=== PATIENT | female | born 1990 | race Caucasian/White ===

== ENCOUNTER → 2019-09-18 15:58 | Outpatient (CLI) | payer OTHER | END | disposition home or self-care (01) | LOC: LAB 15:58 | DX: J11.1 Influenza due to unidentified influenza virus with other respiratory manifestations (principal) ==

== ENCOUNTER 2021-05-19 14:10 | Outpatient (CLI) | payer OTHER | END 2021-05-19 14:30 | disposition home or self-care (01) | LOC: PPH VACUNA 14:10 | PROVIDERS: ATTEND Emergency Medicine Pediatric Emergency Medicine | DX: Z23 Encounter for immunization (principal) ==

== ENCOUNTER 2021-10-23 09:42 | Emergency (ER) | payer OTHER ==
[~2021-10-23] VITALS: Ht 149.9 cm; Wt 97.1 kg
[2021-10-23] MEDS ORDERED: MUPIROCIN22 GM TOP (10:12)
== END 2021-10-23 11:25 | disposition home or self-care (01) ==
LOC: ER 09:42
DX: S90.871A Other superficial bite of right foot, initial encounter (principal); W55.01XA Bitten by cat, initial encounter; Y92.9 Unspecified place or not applicable

== ENCOUNTER 2021-12-18 09:21 | Outpatient (CLI) | payer OTHER ==
[~2021-12-18 09:21] MED LIST: MUPIROCIN22 GM TOP
== END 2021-12-18 15:00 | disposition home or self-care (01) ==
LOC: LAB 09:21
DX: U07.1 COVID-19 (principal)

== ENCOUNTER 2022-03-20 07:50 | Outpatient (CLI) | payer OTHER | END 2022-03-20 07:51 | disposition home or self-care (01) | LOC: LAB 07:50 | PROVIDERS: ATTEND Internal Medicine | DX: G43.109 Migraine with aura, not intractable, without status migrainosus (principal); Z13.1 Encounter for screening for diabetes mellitus; Z13.220 Encounter for screening for lipoid disorders; Z13.29 Encounter for screening for other suspected endocrine disorder; E55.9 Vitamin D deficiency, unspecified ==

== ENCOUNTER 2022-03-21 11:40 | Outpatient (CLI) | payer OTHER | END 2022-03-21 11:42 | disposition home or self-care (01) | LOC: LAB 11:40 | PROVIDERS: ATTEND Internal Medicine | DX: G43.109 Migraine with aura, not intractable, without status migrainosus (principal); E55.9 Vitamin D deficiency, unspecified; Z13.1 Encounter for screening for diabetes mellitus; Z13.220 Encounter for screening for lipoid disorders; Z13.29 Encounter for screening for other suspected endocrine disorder ==

== ENCOUNTER 2022-07-18 07:12 | Outpatient (CLI) | payer OTHER | END 2022-07-18 07:17 | disposition home or self-care (01) | LOC: LAB 07:12 | PROVIDERS: ATTEND Internal Medicine | DX: G43.109 Migraine with aura, not intractable, without status migrainosus (principal); E78.9 Disorder of lipoprotein metabolism, unspecified; Z13.1 Encounter for screening for diabetes mellitus; Z13.29 Encounter for screening for other suspected endocrine disorder; E55.9 Vitamin D deficiency, unspecified; L29.8 Other pruritus ==

== ENCOUNTER 2022-07-19 06:53 | Outpatient (CLI) | payer OTHER | END 2022-07-19 06:56 | disposition home or self-care (01) | LOC: LAB 06:53 | PROVIDERS: ATTEND Internal Medicine | DX: G43.109 Migraine with aura, not intractable, without status migrainosus (principal); L29.8 Other pruritus; E78.9 Disorder of lipoprotein metabolism, unspecified; Z13.1 Encounter for screening for diabetes mellitus; Z13.29 Encounter for screening for other suspected endocrine disorder; E55.9 Vitamin D deficiency, unspecified ==

== ENCOUNTER 2022-08-15 07:19 | Outpatient (CLI) | payer OTHER | END 2022-08-15 07:21 | disposition home or self-care (01) | LOC: LAB 07:19 | PROVIDERS: ATTEND Internal Medicine | DX: D64.9 Anemia, unspecified (principal); E55.9 Vitamin D deficiency, unspecified; L29.8 Other pruritus; G43.109 Migraine with aura, not intractable, without status migrainosus ==

== ENCOUNTER → 2022-09-24 | Outpatient (CLI) | payer OTHER | END | disposition home or self-care (01) | LOC: LAB 07:33 | PROVIDERS: ATTEND Internal Medicine | DX: D64.9 Anemia, unspecified (principal); E55.9 Vitamin D deficiency, unspecified; L29.8 Other pruritus; G43.109 Migraine with aura, not intractable, without status migrainosus ==

== ENCOUNTER → 2022-09-26 10:48 | Outpatient (CLI) | payer OTHER | END | disposition home or self-care (01) | LOC: LAB 10:48 | PROVIDERS: ATTEND Internal Medicine | DX: D64.9 Anemia, unspecified (principal); J10.1 Influenza due to other identified influenza virus with other respiratory manifestations; J06.9 Acute upper respiratory infection, unspecified ==

== ENCOUNTER 2023-05-02 07:49 | Outpatient (CLI) | payer OTHER | END 2023-05-02 08:01 | disposition home or self-care (01) | LOC: SONOGRAMA 07:49 | PROVIDERS: ATTEND Internal Medicine | DX: R10.9 Unspecified abdominal pain (principal) ==

== ENCOUNTER 2023-05-24 10:00 | Outpatient (CLI) | payer OTHER | END 2023-05-24 10:10 | disposition home or self-care (01) | LOC: PPH VACUNA 10:00 | PROVIDERS: ATTEND Emergency Medicine Pediatric Emergency Medicine | DX: Z23 Encounter for immunization (principal) ==

== ENCOUNTER 2023-05-28 07:00 | Outpatient (CLI) | payer OTHER ==
[2023-05-28 10:32] LABS: FOLIC ACID 19.18 ng/ml (4.78-20)
== END 2023-05-28 07:05 | disposition home or self-care (01) ==
LOC: LAB 07:00
PROVIDERS: ATTEND Internal Medicine
DX: D64.9 Anemia, unspecified (principal)

== ENCOUNTER → 2023-07-29 07:56 | Outpatient (CLI) | payer OTHER ==
[2023-07-29 10:03] LABS: HEMOGLOBIN 11.1 g/dL (12.0-15.00); MEAN CELL VOLUME 80.2 fL (80.00-100.00); MEAN CORPUSCULAR HEMOGLOBIN 26.2 pg (27.00-32.0); MEAN CORPUSCULAR HGB CONC 32.6 g/dl (32.0-36.0); PLATELET COUNT 467 K/uL (150-450); RED BLOOD COUNT 4.23 M/uL (4.00-6.00); RED CELL DISTRIBUTION WIDTH 17.3 % (11.5-14.5)
[2023-07-29 10:54] LABS: INR 1.03; PARTIAL THROMBOPLASTIN TIME 30.3 SECONDS (22.0-34.0); PROTHROMBIN TIME 10.8 SECONDS (9.0-11.5)
[2023-07-29 10:56] LABS: ALBUMIN 3.5 gm/dL (3.4-5.0); BILIRUBIN TOTAL 0.43 mg/dL (0.3-1.2); CALCIUM 8.8 mg/dL (8.5-10.1); CREATININE SERUM 0.66 mg/dL (0.55-1.02); GFR 103.78; GLOBULINA 4.1 G/DL (2.4-3.5); POTASSIUM 4.24 mEq/L (3.5-5.1); TOTAL PROTEIN 7.6 gm/dL (6.4-8.2)
[2023-07-29 12:00] LABS: COL EPI 169 SECONDS (82-175)
[2023-07-29 12:57] LABS: FOLIC ACID > 20.00 ng/ml (4.78-20)
[2023-07-30 09:38] LABS: MANUAL PLATELET COUNT 682
[2023-07-30 09:40] LABS: PLATELET ESTIMATE INCREASED (NORMAL)
== END | disposition home or self-care (01) ==
LOC: LAB 07:56
PROVIDERS: ATTEND Internal Medicine Hematology & Oncology
DX: D50.8 Other iron deficiency anemias (principal); R79.9 Abnormal finding of blood chemistry, unspecified; I10 Essential (primary) hypertension; R74.02 Elevation of levels of lactic acid dehydrogenase [LDH]; K76.89 Other specified diseases of liver; D51.8 Other vitamin B12 deficiency anemias; D68.8 Other specified coagulation defects; E56.1 Deficiency of vitamin K; D69.1 Qualitative platelet defects; D68.32 Hemorrhagic disorder due to extrinsic circulating anticoagulants; N92.0 Excessive and frequent menstruation with regular cycle; D68.09 Other von Willebrand disease

== ENCOUNTER 2023-07-31 07:35 | Outpatient (CLI) | payer OTHER ==
[2023-07-31 08:21] LABS: PH,URINE 5.5 (5.0-8.0); URINE APPEARANCE Clear; URINE BILIRRUBIN Negative (NEGATIVE); URINE BLOOD Negative; URINE COLOR Yellow; URINE GLUCOSE Negative (NEGATIVE); URINE LEUKOCYTE Negative; URINE NITRATE Negative; URINE PROTEIN Negative (NEGATIVE); URINE UROBILINOGEN 0.2 E.U./dl
[2023-07-31 08:22] LABS: URINE EPITHELIAL CELLS 18.8 uL (0.0-38.8); URINE RBC 33.4 uL (0.0-20.8); URINE WBC 11.5 uL (0.0-23.2)
[2023-07-31 08:23] LABS: HEMATOCRIT 32.7 % (36.0-45.00); HEMOGLOBIN 10.7 g/dL (12.0-15.00); MEAN CELL VOLUME 78.9 fL (80.00-100.00); MEAN CORPUSCULAR HEMOGLOBIN 25.9 pg (27.00-32.0); MEAN CORPUSCULAR HGB CONC 32.9 g/dl (32.0-36.0); PLATELET COUNT 453 K/uL (150-450); RED BLOOD COUNT 4.14 M/uL (4.00-6.00); RED CELL DISTRIBUTION WIDTH 17.4 % (11.5-14.5)
[2023-07-31 08:53] LABS: ALBUMIN 3.5 gm/dL (3.4-5.0); BILIRUBIN TOTAL 0.3 mg/dL (0.3-1.2); CALCIUM 8.9 mg/dL (8.5-10.1); CHOL HDL RATIO 3.5 (0-5.0); CREATININE SERUM 0.62 mg/dL (0.55-1.02); GFR 111.55; GLOBULINA 3.8 G/DL (2.4-3.5); POTASSIUM 4.39 mEq/L (3.5-5.1); TOTAL PROTEIN 7.3 gm/dL (6.4-8.2); TSH 1.18 uIU/mL (0.358-3.74)
== END 2023-07-31 07:36 | disposition home or self-care (01) ==
LOC: LAB 07:35
PROVIDERS: ATTEND Internal Medicine
DX: E16.1 Other hypoglycemia (principal); D64.9 Anemia, unspecified; E55.9 Vitamin D deficiency, unspecified; G43.109 Migraine with aura, not intractable, without status migrainosus; L29.8 Other pruritus

== ENCOUNTER 2023-10-14 07:59 | Outpatient (CLI) | payer OTHER ==
[2023-10-14 08:32] LABS: HEMATOCRIT 33.8 % (36.0-45.00); MEAN CELL VOLUME 80.3 fL (80.00-100.00); MEAN CORPUSCULAR HEMOGLOBIN 26.2 pg (27.00-32.0); MEAN CORPUSCULAR HGB CONC 32.6 g/dl (32.0-36.0); PLATELET COUNT 523 K/uL (150-450); RED BLOOD COUNT 4.21 M/uL (4.00-6.00)
[2023-10-14 08:34] LABS: PH,URINE 5.5 (5.0-8.0); URINE APPEARANCE Clear; URINE BILIRRUBIN Negative (NEGATIVE); URINE BLOOD Trace; URINE COLOR Yellow; URINE GLUCOSE Negative (NEGATIVE); URINE LEUKOCYTE Negative; URINE NITRATE Negative; URINE PROTEIN Negative (NEGATIVE); URINE UROBILINOGEN 0.2 E.U./dl
[2023-10-14 08:38] LABS: URINE BACTERIA 1644.2 uL (0.0-1933); URINE EPITHELIAL CELLS 12.8 uL (0.0-38.8); URINE RBC 24.7 uL (0.0-20.8); URINE WBC 10.3 uL (0.0-23.2)
[2023-10-14 09:06] LABS: ALBUMIN 3.6 gm/dL (3.4-5.0); BILIRUBIN TOTAL 0.25 mg/dL (0.3-1.2); CALCIUM 9.4 mg/dL (8.5-10.1); CHOL HDL RATIO 4.3 (0-5.0); CREATININE SERUM 0.66 mg/dL (0.55-1.02); GFR 103.14; GLOBULINA 4.1 G/DL (2.4-3.5); POTASSIUM 4.34 mEq/L (3.5-5.1); TOTAL PROTEIN 7.7 gm/dL (6.4-8.2); TSH 1.79 uIU/mL (0.358-3.74)
== END 2023-10-14 08:00 | disposition home or self-care (01) ==
LOC: LAB 07:59
PROVIDERS: ATTEND Internal Medicine
DX: E16.1 Other hypoglycemia (principal); D64.9 Anemia, unspecified; D55.9 Anemia due to enzyme disorder, unspecified; G43.109 Migraine with aura, not intractable, without status migrainosus; L29.8 Other pruritus

== ENCOUNTER 2024-04-08 06:46 | Outpatient (CLI) | payer OTHER ==
[2024-04-08 07:26] LABS: HEMATOCRIT 32.8 % (36.0-45.00); MEAN CELL VOLUME 81.2 fL (80.00-100.00); MEAN CORPUSCULAR HEMOGLOBIN 27.1 pg (27.00-32.0); MEAN CORPUSCULAR HGB CONC 33.4 g/dl (32.0-36.0); PLATELET COUNT 488 K/uL (150-450); RED BLOOD COUNT 4.04 M/uL (4.00-6.00); RED CELL DISTRIBUTION WIDTH 14.9 % (11.5-14.5)
[2024-04-08 08:04] LABS: URINE BACTERIA 311.1 uL (0.0-1933); URINE EPITHELIAL CELLS 8.8 uL (0.0-38.8); URINE RBC 9.4 uL (0.0-20.8); URINE WBC 5.7 uL (0.0-23.2)
[2024-04-08 08:08] LABS: URINE BILIRRUBIN NEGATIVE (NEGATIVE); URINE BLOOD NEGATIVE; URINE GLUCOSE NEGATIVE (NEGATIVE); URINE KETONE NEGATIVE (NEGATIVE); URINE LEUKOCYTE NEGATIVE; URINE NITRATE NEGATIVE; URINE PROTEIN NEGATIVE (NEGATIVE); URINE UROBILINOGEN 0.2 E.U./dl
[2024-04-08 08:09] LABS: URINE APPEARANCE CLEAR; URINE COLOR YELLOW
[2024-04-08 08:13] LABS: ALBUMIN 3.4 gm/dL (3.4-5.0); BILIRUBIN TOTAL 0.2 mg/dL (0.3-1.2); CALCIUM 8.9 mg/dL (8.5-10.1); CHOL HDL RATIO 3.8 (0-5.0); CREATININE SERUM 0.55 mg/dL (0.55-1.02); GFR 127.29; POTASSIUM 4.2 mEq/L (3.5-5.1); TOTAL PROTEIN 7.4 gm/dL (6.4-8.2); TSH 1.96 uIU/mL (0.358-3.74)
== END 2024-04-08 06:53 | disposition home or self-care (01) ==
LOC: LAB 06:46
PROVIDERS: ATTEND Internal Medicine
DX: D68.00 Von Willebrand disease, unspecified (principal); D64.9 Anemia, unspecified; E78.9 Disorder of lipoprotein metabolism, unspecified; Z13.29 Encounter for screening for other suspected endocrine disorder; E16.1 Other hypoglycemia; E55.9 Vitamin D deficiency, unspecified; G43.109 Migraine with aura, not intractable, without status migrainosus; L29.8 Other pruritus

== ENCOUNTER 2024-04-08 07:45 | Outpatient (CLI) | payer OTHER | END 2024-04-08 07:48 | disposition home or self-care (01) | LOC: SONOGRAMA 07:45 | PROVIDERS: ATTEND Internal Medicine | DX: E04.1 Nontoxic single thyroid nodule (principal) ==

== ENCOUNTER → 2024-07-13 07:43 | Outpatient (CLI) | payer OTHER ==
[2024-07-13 08:20] LABS: HEMATOCRIT 33.8 % (36.0-45.00); HEMOGLOBIN 11.1 g/dL (12.0-15.00); MEAN CELL VOLUME 81.1 fL (80.00-100.00); MEAN CORPUSCULAR HEMOGLOBIN 26.6 pg (27.00-32.0); MEAN CORPUSCULAR HGB CONC 32.8 g/dl (32.0-36.0); PLATELET COUNT 500 K/uL (150-450); RED BLOOD COUNT 4.17 M/uL (4.00-6.00)
[2024-07-13 08:29] LABS: PH,URINE 7.5 (5.0-8.0); URINE APPEARANCE Clear; URINE BILIRRUBIN Negative (NEGATIVE); URINE BLOOD Negative; URINE COLOR Yellow; URINE GLUCOSE Negative (NEGATIVE); URINE KETONE Negative (NEGATIVE); URINE LEUKOCYTE Negative; URINE NITRATE Negative; URINE PROTEIN Negative (NEGATIVE); URINE UROBILINOGEN 0.2 E.U./dl
[2024-07-13 08:32] LABS: URINE BACTERIA 1495.4 uL (0.0-1933); URINE EPITHELIAL CELLS 22.8 uL (0.0-38.8); URINE RBC 21.3 uL (0.0-20.8); URINE WBC 4.4 uL (0.0-23.2)
[2024-07-13 09:16] LABS: INR 1.03; PARTIAL THROMBOPLASTIN TIME 30.7 SECONDS (22.0-34.0); PROTHROMBIN TIME 11.2 SECONDS (9.0-11.5)
[2024-07-13 09:22] LABS: ALBUMIN 3.6 gm/dL (3.4-5.0); BILIRUBIN TOTAL 0.31 mg/dL (0.3-1.2); CALCIUM 9.3 mg/dL (8.5-10.1); CREATININE SERUM 0.6 mg/dL (0.55-1.02); GFR 115.13; GLOBULINA 4.2 G/DL (2.4-3.5); POTASSIUM 4.02 mEq/L (3.5-5.1); TOTAL PROTEIN 7.8 gm/dL (6.4-8.2)
[2024-07-13 09:27] LABS: CHOL HDL RATIO 4.2 (0-5.0); TSH 1.63 uIU/mL (0.358-3.74)
== END | disposition home or self-care (01) ==
LOC: LAB 07:43
PROVIDERS: ATTEND Internal Medicine Hematology & Oncology
DX: D50.8 Other iron deficiency anemias (principal); D51.3 Other dietary vitamin B12 deficiency anemia; D68.32 Hemorrhagic disorder due to extrinsic circulating anticoagulants; N92.0 Excessive and frequent menstruation with regular cycle; D68.01 Von Willebrand disease, type 1; I10 Essential (primary) hypertension; R74.02 Elevation of levels of lactic acid dehydrogenase [LDH]; K76.89 Other specified diseases of liver; D68.8 Other specified coagulation defects; E16.1 Other hypoglycemia; Z13.29 Encounter for screening for other suspected endocrine disorder; D64.9 Anemia, unspecified; E78.9 Disorder of lipoprotein metabolism, unspecified; D68.00 Von Willebrand disease, unspecified

== ENCOUNTER → 2024-10-22 06:32 | Outpatient (CLI) | payer OTHER ==
[2024-10-22 07:22] LABS: HEMATOCRIT 34.3 % (36.0-45.00); HEMOGLOBIN 11.2 g/dL (12.0-15.00); MEAN CELL VOLUME 79.8 fL (80.00-100.00); MEAN CORPUSCULAR HGB CONC 32.6 g/dl (32.0-36.0); PLATELET COUNT 533 K/uL (150-450); RED BLOOD COUNT 4.31 M/uL (4.00-6.00); RED CELL DISTRIBUTION WIDTH 15.2 % (11.5-14.5)
[2024-10-22 07:36] LABS: URINE APPEARANCE Clear; URINE BILIRRUBIN Negative (NEGATIVE); URINE BLOOD Negative; URINE COLOR Yellow; URINE GLUCOSE Negative (NEGATIVE); URINE KETONE Negative (NEGATIVE); URINE LEUKOCYTE Negative; URINE NITRATE Negative; URINE PROTEIN Negative (NEGATIVE); URINE UROBILINOGEN 0.2 E.U./dl
[2024-10-22 07:37] LABS: URINE BACTERIA 1675.3 uL (0.0-1933); URINE EPITHELIAL CELLS 15.3 uL (0.0-38.8); URINE RBC 19.1 uL (0.0-20.8); URINE WBC 8.3 uL (0.0-23.2)
[2024-10-22 07:41] LABS: URINE CAST 0.14 uL (0.0-1.40)
[2024-10-22 08:50] LABS: ALBUMIN 3.5 gm/dL (3.4-5.0); BILIRUBIN TOTAL 0.38 mg/dL (0.3-1.2); CALCIUM 8.9 mg/dL (8.5-10.1); CHOL HDL RATIO 3.9 (0-5.0); CREATININE SERUM 0.66 mg/dL (0.55-1.02); GFR 102.52; POTASSIUM 4.68 mEq/L (3.5-5.1); TOTAL PROTEIN 7.5 gm/dL (6.4-8.2); TSH 1.75 uIU/mL (0.358-3.74)
== END | disposition home or self-care (01) ==
LOC: LAB 06:32
PROVIDERS: ATTEND Internal Medicine
DX: D68.00 Von Willebrand disease, unspecified (principal); D64.9 Anemia, unspecified; E78.9 Disorder of lipoprotein metabolism, unspecified; Z13.29 Encounter for screening for other suspected endocrine disorder; E16.1 Other hypoglycemia

== ENCOUNTER 2024-11-04 07:06 | Outpatient (CLI) | payer OTHER | END 2024-11-04 07:10 | disposition home or self-care (01) | LOC: RAD 07:06 | PROVIDERS: ATTEND Internal Medicine | DX: Z95.818 Presence of other cardiac implants and grafts (principal) ==

== ENCOUNTER 2024-11-16 18:15 | Emergency (ER) | payer OTHER ==
[~2024-11-16] VITALS: Ht 149.9 cm; Wt 86.2 kg
[2024-11-16] MEDS ORDERED: FAMOtidine 10 MG/ML (4ML VIAL) IV ONE (18:45)
[2024-11-16] MEDS ORDERED: 0.9 % SODIUM CHLORIDE 1,000 ML IV ONE (18:45)
[2024-11-16] MEDS ORDERED: LORATADINE 10 MG TABLET PO ONE (18:45)
[2024-11-16] MEDS ORDERED: BUTALB/ACETAMINOPHEN/CAFFEINE 1 TAB TABLET PO ONE (18:45)
[2024-11-16 19:23] LABS: HEMATOCRIT 34.9 % (36.0-45.00); HEMOGLOBIN 11.3 g/dL (12.0-15.00); MEAN CELL VOLUME 80.8 fL (80.00-100.00); MEAN CORPUSCULAR HEMOGLOBIN 26.2 pg (27.00-32.0); MEAN CORPUSCULAR HGB CONC 32.4 g/dl (32.0-36.0); PLATELET COUNT 466 K/uL (150-450); RED BLOOD COUNT 4.32 M/uL (4.00-6.00); RED CELL DISTRIBUTION WIDTH 14.9 % (11.5-14.5)
[2024-11-16] MEDS ORDERED: PEPCID AC20 MG PO (19:49)
[2024-11-16] MEDS ORDERED: OSEL75CA PO (19:49)
== END 2024-11-16 20:01 | disposition home or self-care (01) ==
LOC: ER 18:15
PROVIDERS: General Practice
DX: J10.1 Influenza due to other identified influenza virus with other respiratory manifestations (principal); D68.00 Von Willebrand disease, unspecified; Z20.822 Contact with and (suspected) exposure to COVID-19

== ENCOUNTER 2024-12-21 07:00 | Outpatient (CLI) | payer OTHER ==
[~2024-12-21 07:00] MED LIST changes: +OSEL75CA PO; +PEPCID AC20 MG PO
[2024-12-21 08:19] LABS: HEMATOCRIT 32.8 % (36.0-45.00); HEMOGLOBIN 10.9 g/dL (12.0-15.00); MEAN CELL VOLUME 79.4 fL (80.00-100.00); MEAN CORPUSCULAR HEMOGLOBIN 26.4 pg (27.00-32.0); MEAN CORPUSCULAR HGB CONC 33.2 g/dl (32.0-36.0); PLATELET COUNT 505 K/uL (150-450); RED BLOOD COUNT 4.13 M/uL (4.00-6.00); RED CELL DISTRIBUTION WIDTH 15.3 % (11.5-14.5)
[2024-12-21 08:25] LABS: PARTIAL THROMBOPLASTIN TIME 30.2 SECONDS (22.0-34.0); PROTHROMBIN TIME 10.9 SECONDS (9.0-11.5)
[2024-12-21 08:45] LABS: COL EPI 164 SECONDS (82-175)
[2024-12-21 09:16] LABS: ALBUMIN 3.3 gm/dL (3.4-5.0); BILIRUBIN TOTAL 0.28 mg/dL (0.3-1.2); CALCIUM 8.5 mg/dL (8.5-10.1); CREATININE SERUM 0.58 mg/dL (0.55-1.02); GLOBULINA 4.1 G/DL (2.4-3.5); POTASSIUM 4.24 mEq/L (3.5-5.1); TOTAL PROTEIN 7.4 gm/dL (6.4-8.2)
[2024-12-21 13:29] LABS: FOLIC ACID > 20.00 ng/ml (4.78-20); VITAMIN D3 25 HYDROXY 40.07 ng/ml (30-120)
[2024-12-22 09:12] LABS: CA 125 10.9 U/mL (0.0-38.1); CA 15-3 9.2 U/mL (0.0-25.0); CA 19-9 < 2 U/mL (0-35)
[2024-12-23 13:08] LABS: FACTOR VIII ACTIVITY 79 % (56-140); VON WILLERBRAND ACTIVITY 28 % (50-200); VON WILLERBRAND ANTIGEN 71 % (50-200)
== END 2024-12-21 07:03 | disposition home or self-care (01) ==
LOC: LAB 07:00
PROVIDERS: ATTEND Internal Medicine Hematology & Oncology
DX: D50.8 Other iron deficiency anemias (principal); D51.3 Other dietary vitamin B12 deficiency anemia; D68.32 Hemorrhagic disorder due to extrinsic circulating anticoagulants; D68.01 Von Willebrand disease, type 1; I10 Essential (primary) hypertension; R74.02 Elevation of levels of lactic acid dehydrogenase [LDH]; K76.89 Other specified diseases of liver; E55.9 Vitamin D deficiency, unspecified; D68.8 Other specified coagulation defects; D69.1 Qualitative platelet defects; C50.919 Malignant neoplasm of unspecified site of unspecified female breast; R97.0 Elevated carcinoembryonic antigen [CEA]

== ENCOUNTER 2025-06-01 07:25 | Outpatient (CLI) | payer OTHER ==
[2025-06-01 08:09] LABS: BASO % 0.7 % (0.1-1.2); EOS # 0.14 (0.04-0.54); EOS % 1.5 % (0.7-7.0); LYMPH # 1.84 (1.18-3.74); LYMPH % 20.0 % (19.3-53.1); MEAN PLATELET VOLUME 9.00 fl (9.4-12.4); MONO # 0.51 (0.24-0.82); MONO % 5.5 % (4.7-12.5); NEUT # 6.63 (1.56-6.13); NEUT % 72.0 % (34.0-71.1); RED CELL DISTRIBUTION WIDTH 14.6 % (11.6-14.4)
[2025-06-01 08:39] LABS: INR 1.04
[2025-06-01 08:50] LABS: COL EPI 154 SECONDS (82-175)
[2025-06-01 08:56] LABS: ALT/SGPT 12.0 U/L (12-78); AST/SGOT 11.0 U/L (15-37); BILIRUBIN TOTAL 0.43 mg/dL (0.3-1.2); BUN CREA RATIO 15.0 (7.0-25.0); CREATININE SERUM 0.61 mg/dL (0.55-1.02); FE 61.0 ug/dl (50-170); GFR 112.27; GLOBULINA 3.8 G/DL (2.4-3.5); GLUCOSE FASTING 102.0 mg/dL (65-100); LDH 126.0 U/L (84-246); OSMOLALITY SERUM 278.0 MOSM/KG (275-295)
[2025-06-01 11:39] LABS: FOLIC ACID > 20.00 ng/ml (4.78-20)
== END 2025-06-01 07:30 | disposition home or self-care (01) ==
LOC: LAB 07:25
PROVIDERS: ATTEND Internal Medicine Hematology & Oncology
DX: D50.8 Other iron deficiency anemias (principal); D51.3 Other dietary vitamin B12 deficiency anemia; D68.32 Hemorrhagic disorder due to extrinsic circulating anticoagulants; N92.0 Excessive and frequent menstruation with regular cycle; D68.01 Von Willebrand disease, type 1; I10 Essential (primary) hypertension; R74.02 Elevation of levels of lactic acid dehydrogenase [LDH]; K76.89 Other specified diseases of liver; D52.9 Folate deficiency anemia, unspecified; D68.8 Other specified coagulation defects

== ENCOUNTER 2025-06-15 08:11 | Outpatient (CLI) | payer OTHER | END 2025-06-15 08:13 | disposition home or self-care (01) | LOC: MAMO-SONO 08:11 | PROVIDERS: ATTEND Surgery | DX: N60.11 Diffuse cystic mastopathy of right breast (principal); N60.12 Diffuse cystic mastopathy of left breast ==